=== PATIENT | male | born 1990 | race Two or more races ===

== ENCOUNTER 2025-07-26 06:20 | Emergency (ER) | payer BC, SELFPAY ==
[2025-07-26 06:21] VITALS: BMI 38.7
[2025-07-26 06:29] VITALS: BP 130/81; PULSE 76; RESP 19; TEMP 37; O2SAT 97
[2025-07-26 07:08] LABS: Collection Type, Urine Voided; Squamous Epithelial Cell,Urine 0 /hpf (0-5)
[2025-07-26 07:24] LABS: Bilirubin,Urine Negative (Negative); Blood,Urine Trace (Negative); Clarity,Urine Clear (Clear/Hazy); Color,Urine Lt-Yellow (Lt Yel-Yel); Culture Indicated,Urine Not Indicated; Glucose, Urine Negative (Negative); Ketones,Urine Negative (Negative); Leukocyte Esterase,Urine Negative (Negative); Nitrite,Urine Negative (Negative); PH,Urine 6.0 (5.0-7.0); Protein,Urine Negative (Neg - Trace); RBC,Urine 1 /hpf (0-3); Specific Gravity,Urine 1.029 (1.001-1.035); Urobilinogen,Urine Negative mg/dL (0.0-1.0); WBC,Urine < 1 /hpf (0-5)
--- NOTE | 2025-07-26 07:47 | EDNOTE_ITS ---
ED Male Genitalurinary RME/HPI General Chief complaint: Urogenital-Male Stated complaint: PAIN IN URINATION Time Seen by Provider: 07/26/25 06:23 Arrival date/time: 07/26/25 06:20 This is a 35-year-old male that comes into the emergency room with complaints of wanting an STD check. Patient reports that his partner recently got diagnosed with chlamydia. They were both treated with Zithromax. Patient states that he is feeling itchy nests around his penis. Patient denies any urinary symptoms. Related Data Previous Rx's ?Medication ?Instructions ?Recorded acetaminophen 500 mg tablet 1,000 mg (2 x 500 mg) PO Q ID PRN 07/25/21 fever or pain #30 tabs azithromycin 250 mg tablet See Rx Instructions PO .COM PLEX #6 07/25/21 tabs fluconazole 150 mg tablet 150 mg PO Q3D 2 doses #2 tab s 07/26/25 Allergies Allergy/AdvReac Type Severity Reaction Status Date / Time No Known Allergies Allergy Verified 07/26/25 06:21 Review of Systems Review of Systems Systems Reviewed: All systems reviewed, normal except as documented Past Medical History Social History SMOKING STATUS: Never smoker Travel History EBOLA RISK: No ED Exam Narrative Physical exam: VITAL SIGNS: Reviewed. GENERAL APPEARANCE: Alert and interactive, follows commands, no acute distress HEAD AND FACE: Non-traumatic. ENT: PERRL, conjuctiva pink and clear, eyelid no trauma, Mucous membrane moist. NECK: Supple, nontender, no nuchal rigidity. CHEST: No tenderness, no crepitus, no paradoxical movement, no retractions. LUNGS: breathing even and unlabored HEART: Regular rate, cap refill less than 2 seconds ABDOMEN: Soft, nondistended, no guarding, nontender NEUROLOGICAL: Gross motor function intact sensory function intact, Appropriate for age. MUSCULOSKELETAL: low back nontender, full range of motion. no midline tenderness, no meningismus, no step offs EXTREMITIES: No redness no swelling no skin breakdown on bilateral foot and leg. Distal neurovascular status intact bilateral foot SKIN: Color pink, dry, mild irritation to the tip of his penis. I had Herb RN with me when I examined patient Course Quality Measures none Orders Category Date Time Status Chlamydia/GC/TV - PCR Stat Lab 07/26/25 06:54 Completed Urinalysis, C/S if Indicated Stat Lab 07/26/25 06:54 Completed Urine Culture Stat Lab 07/26/25 06:54 Completed Vital Signs Vital signs: Vital Signs Temperature 98.6 F 07/26/25 06:29 Pulse Rate 76 07/26/25 06:29 Respiratory Rate 19 07/26/25 06:29 Blood Pressure 130/81 07/26/25 06:29 Pulse Oximetry (%) 97 07/26/25 06:29 Oxygen Delivery Method Room Air 07/26/25 06:29 Urogenital - Male MDM Narrative MDM Narrative:: I spoke to patient at length. Patient was treated for chlamydia with Zithromax. Although this would be my antibiotic of choice that would have treated with doxycycline was treated and does have a follow-up appointment with his primary doctor. I did send a urine and it was unremarkable and I will send a GC chlamydia swab to the lab patient told to keep scheduled appointment with kiersten gunter doctor. Patient's partner getting treated for a possible yeast infection. Patient also states that he feels itchy. Penis only looks mildly irritated. Will give patient Diflucan as well and see if this helps symptoms. Patient verbalized understanding and feels comfortable plan of care. Follow up with primary provider in 1-2 days. Come back to ED if symptoms change or worsen dragon dictation: Although this document has been carefully reviewed, there may still be some phonetic and other typographical errors. These errors are purely grammatical due to imperfections in the software program and should not be construed in any way to compromise the substance of the patient's medical care during this visit. Patient data External records reviewed:: [facility] previous records Clinical information provided by:: patient Social determinants that could affect healthcare access:: none Patient has the following chronic illnesses:: None How is presenting disease/condition affected by chronic disease/condition?: no chronic disease Evaluation data The following diagnostics were reviewed and interpreted by me:: lab results Lab and/or radiology exams considered but not ordered:: None Interpretation Summary: See note Medications / Prescriptions Medications or Prescriptions considered but not ordered:: None Medication administrations:: See note Consultations Consultation(s) initiated? (list below): No Diagnosis Urogenital Male Differential Diagnosis: urinary tract infection, genital herpes simplex and other (STD, balanitis) Most likely diagnosis given after review of the tests above:: Balanitis Admission Indicated Admission indicated?: not indicated Admission Request Was there a request for admission?: No Disposition Plan Disposition Plan: Discharge Discharge Attestation Discharge Attestation: The patient and all family members were given an opportunity to ask questions and understood the discharge instructions. Discharge instructions specifically effects, indications for sooner follow up or return to the emergency department, and the expected course of current diagnosis. Patient condition: Stable Discharge Plan Plan Patient Disposition: HOME (Self Care) Patient condition on transfer: Stable Prescriptions/Referrals Prescriptions/Med Rec: New fluconazole 150 mg tablet 150 mg PO Q3D Qty: 2 0RF Rx Instructions: may repeat second dose 72 hrs after first dose if symptoms persist No Action acetaminophen 500 mg tablet 1,000 mg PO QID PRN (Reason: fever or pain) Qty: 30 0RF azithromycin 250 mg tablet See Rx Instructions .ROUTE .COMPLEX Qty: 6 0RF Rx Instructions: take 500 mg today (day 1), then 250 mg for 4 days (days 2-5) Referrals: No Primary/Family,Physician [Primary Care Provider] - In 1 week Problem List Clinical Impression: Balanitis Patient/Caregiver Discharge Instructions Discharge Activity: activity as tolerated Education Materials: ED Balanitis Additional Instructions: follow up with primary provider in 1-2 days. Come back to ED if symptoms change or worsen. Follow-up culture results Print Language: German Stand Alone Forms: Aniyah Award Info., Patient Portal Info Letter ANGELLA/DENYS Supervising Physician ANGELLA/DENYS Supervising Physician: jose david
[2025-07-26 07:59] VITALS: BP 141/81; PULSE 74; RESP 15; TEMP 36.6; O2SAT 97
[2025-07-26 10:41] LABS: Chlamydia trachomatis PCR Negative (Not Detect); Neisseria Gonorrhoeae DNA PCR Negative (Not Detect); Trichomonas Negative (Negative)
== END 2025-07-26 08:05 | disposition home or self-care (01) ==
PROVIDERS: Emergency Provider Nurse Practitioner Family
DX: N48.1 Balanitis (principal)
CPT/HCPCS: 81001; 87086; 87491; 87591; 87661; 99283